=== PATIENT | male | born 1995 | race Caucasian/White ===

== ENCOUNTER 2021-12-22 20:56 | Emergency (ER) | payer MEDICAID ==
[~2021-12-22] VITALS: Ht 193 cm; Wt 118.0 kg
[2021-12-22] MEDS ORDERED: KETOROLAC TROMETH 60MG/2ML VIAL IM ONE (23:30)
[2021-12-22] MEDS ORDERED: IBUP800T26 PO (23:47)
[2021-12-22] MEDS ORDERED: AMOX-277 PO (23:47)
[2021-12-22 23:53] VITALS: BP 131/89
== END 2021-12-23 00:05 | disposition home or self-care (01) ==
LOC: ER 20:56
DX: K02.9 Dental caries, unspecified (principal)
CPT/HCPCS: 96372; 99283; J1885